=== PATIENT | female | born 1945 | race Caucasian/White ===

== ENCOUNTER 2016-10-08 10:07 | Emergency (ER) | payer MEDICARE, OTHER ==
--- NOTE | 2016-10-08 10:24 | Emergency Department Record ---
History of Present Illness - General Chief Complaint: Difficulty Breathing Stated Complaint: ARACELIS Time Seen by Provider: 10/08/16 10:13 Source: Patient Mode of Arrival: Ambulatory Limitations: No limitations - History of Present Illness Initial Comments: 71 yo female presents with increased shortness of breath over the last 1-2 months. She has had a mild cough. No fevers. She has has some right sided chest pains as well. The chest pain is under the right breast and is worse with inspiration. She is progressively getting more short of breath over time. She had a CXR performed on 09/28 that demonstrated a RUL hazy opacity. She saw her PCP on 10/04. A CT of the chest was scheduled for Sunday. She shortness of breath has progressed since then. No fever. No hemoptysisi. No history of cancer. She was started on antibiotics by her doctor. PCP is Jaci Barber. She is a non smoker. She is a diabetic and she has had pneumonia (2016) MD Complaint: Chest pain (with deep inspiration), Cough, Shortness of breath -: Week(s) (8) Severity: Severe Quality: Aching Consistency: Constant Improves With: Rest Worsens With: Exertion Context: Recent URI Associated Symptoms: Denies other symptoms - Related Data Allergies Allergy/AdvReac Type Severity Reaction Status Date / Time No Known Drug Allergies Allergy Verified 10/08/16 10:09 Review of Systems Constitutional: Denies: Chills, Fever, Malaise, Weakness Eyes: Denies: Eye discharge, Eye pain, Vision change ENT: Denies: Congestion, Epistaxis, Throat pain Respiratory: Reports: Cough, Dyspnea. Denies: Hemoptysis, Stridor, Wheezes Cardiovascular: Reports: Chest pain. Denies: Palpitations, Syncope Endocrine: Denies: Fatigue, Polydipsia, Polyuria Gastrointestinal: Denies: Abdominal pain, Diarrhea, Nausea, Vomiting Genitourinary: Denies: Dysuria, Urgency Musculoskeletal: Denies: Arthralgia, Back pain, Myalgia, Neck pain Skin: Denies: Bruising, Change in color Neurological: Denies: Headache, Numbness, Vertigo, Weakness Psychiatric: Reports: Anxiety Hematological/Lymphatic: Denies: Blood Clots, Easy bleeding, Easy bruising, Swollen glands Past Medical History - SOCIAL HISTORY Smoking Status: Former smoker - RESPIRATORY Hx Respiratory Disorders: Yes Hx Pneumonia: Yes - CARDIOVASCULAR Hx Cardio Disorders: Yes Hx Hypertension: Yes Comment:: hypercholesteremia - NEURO Hx Neuro Disorders: No - GI Hx GI Disorders: No - Hx Genitourinary Disorders: No - ENDOCRINE Hx Endocrine Disorders: Yes Hx Diabetes: Yes (NIDDM) Hx Thyroid Disease: Yes - MUSCULOSKELETAL Hx Musculoskeletal Disorders: No - PSYCH Hx Psych Problems: No - HEMATOLOGY/ONCOLOGY Hx Hematology/Oncology Disorders: No Physical Exam - General General Appearance: Alert, Oriented x3, Cooperative, Mild distress (due to shortness of breath), Anxious Limitations: No limitations - Head Head exam: Normal inspection - Eye Eye exam: Normal appearance, PERRL. negative: Conjunctival injection, Periorbital swelling, Scleral icterus - ENT ENT exam: Normal exam, Mucous membranes moist Ear exam: Normal external inspection Nasal Exam: Normal inspection Mouth exam: Normal external inspection Teeth exam: Normal inspection Throat exam: Normal inspection - Neck Neck exam: Normal inspection, Full ROM. negative: Tenderness - Respiratory Respiratory exam: Accessory muscle use, Chest wall tenderness (right upper), Decreased breath sounds. negative: Normal lung sounds bilaterally, Prolonged expiratory, Rhonchi, Wheezes - Cardiovascular Cardiovascular Exam: Regular rate, Normal rhythm, Normal heart sounds - GI/Abdominal GI/Abdominal exam: Soft. negative: Tenderness - Rectal Rectal exam: Deferred - exam: Deferred - Extremities Extremities exam: Normal inspection, Full ROM, Normal capillary refill. negative: Pedal edema, Tenderness - Back Back exam: Reports: Normal inspection, Full ROM. Denies: CVA tenderness (R), CVA tenderness (L), Muscle spasm, Rash noted, Tenderness - Neurological Neurological exam: Alert, Normal gait, Oriented X3. negative: Altered - Psychiatric Psychiatric exam: Normal affect, Normal mood. negative: Agitated, Anxious - Skin Skin exam: Dry, Intact, Normal color, Warm Course - Reevaluation(s) Reevaluation #1: The patient was seen on arrival Her initial room air oxygen saturation was 85% No fever. Right sided chest pain that has been present for several weeks. 10/08/16 10:25 Reevaluation #2: The CBC was reviewed. No acute changes. The portable chest XR was reviewed as well as the 09/28 CXR. Hazy opacity noted on today's portable much worse than the prior on 09/28. 10/08/16 10:40 BUN/CR/GFR reviewed and are in the normal range 10/08/16 10:45 Reevaluation #3: The Troponin and BNP are normal The CXR was read as congestion with possible infiltrate The patient has a concern about IV contrast. She has never had it but her son got hives. We discussed the risks and benefits. She agrees to get IV contrast. She will be given Solumedrol and Benadryl prior. 10/08/16 11:02 Reevaluation #4: CTA of the chest completed. Soft tissue mass in the right hilar area, 7 x 8 x 6 cm, right pleural effusion, interstitial junior disease, nodules in the liver and adrenals. Suspicious for malignancy. She was informed of the results. Given the findings and her hypoxia she will need to be transferred. She chooses [facility] was contacted (Brianna) 10/08/16 12:34 Reevaluation #5: The patient was accepted by Dr Choi for inpatient work up of the mass due to her hypoxia 10/08/16 12:57 The patient was assigned a bed at [facility]. 10/08/16 13:35 Procedures - EKG Initial Date: 10/08/16 Time: 10:18 EKG Detail: Rate 93, Int normal, Josephine leftward, ST?QRS Anterior Q, no depression , Medical Decision Making - Lab Data Result diagrams: 10/08/16 10:22 10/08/16 10:22 Disposition Disposition: Transfer Clinical Impression: Hypoxia, Mass of right lung Dyspnea Qualifiers: Dyspnea type: unspecified Qualified Code(s): R06.00 - Dyspnea, unspecified Disposition: Acute Care Hospital Transfer Transfer To: [facility] Reason For Transfer: new lung mass Accepting Physician: Jimbo Time Discussed w/Accepting Physician: 12:57 Condition: (2) Stable Forms: Patient Portal Access Time of Disposition: 12:58
[2016-10-08 10:30] LABS: BASO % 0.3 % (0-6); EOS % 2.7 % (0-6); GRAN % 72.9 % (47-80); HEMATOCRIT 45.8 % (35.0-47.0); HEMOGLOBIN 14.9 gm/dl (11.6-16.0); LYMPH % 16.7 % (16-45); MEAN CELL VOLUME 83.1 fl (81-97); MEAN CORPUSCULAR HGB CONC 32.5 g/dl (32-36); MEAN PLATELET VOLUME 9.7 fl (7.4-10.4); MONO % 7.4 % (0-9); PLATELET COUNT 248 K/uL (130-400); RED BLOOD COUNT 5.51 M/uL (3.80-5.40); RED CELL DISTRIBUTION WIDTH 13.1 % (11.5-14.5); WHITE BLOOD COUNT W/O DIFF 9.4 K/uL (4.2-12.2)
[2016-10-08] MEDS: IPRATROPIUM/ALBUTEROL (0.5MG/3MG) NEB INH ONE (10:33)
[2016-10-08 10:41] LABS: ALB/GLOB RATIO 1.2 (1.1-1.8); ALBUMIN 4.7 gm/dL (3.5-5.0); ALKALINE PHOSPHATASE 96 U/L (38-126); ALT/SGPT 30 U/L (9-52); ANION GAP 11.5 (7-16); AST/SGOT 34 U/L (14-36); BILIRUBIN,TOTAL 0.59 mg/dL (0.2-1.3); BLOOD UREA NITROGEN 12 mg/dL (7-17); CARBON DIOXIDE 27.5 mmol/L (22-30); CREATININE 0.7 mg/dL (0.52-1.04); EST GLOMERULAR FILTRATION RATE > 60 ml/min; GLUCOSE,RANDOM 141 mg/dL (70-110); TOTAL PROTEIN 8.6 gm/dL (6.3-8.2)
[2016-10-08 10:42] LABS: INR 0.97; PARTIAL THROMBOPLASTIN TIME 27.4 SECONDS (24.5-39.1)
[2016-10-08 11:00] LABS: TROPONIN I < 0.012 ng/mL (0.00-0.034)
[2016-10-08] MEDS: METHYLPREDNISOLONE PF 125MG/VIAL IVP ONE (11:10)
[2016-10-08] MEDS: DIPHENHYDRAMINE HCL IV 50 MG/ML VIAL IVP ONE (11:10)
[2016-10-08] MEDS: CEFTRIAXONE SODIUM 1 GM in 0.9 % SODIUM CHLORIDE 100ML 100 ML IVPB ONE (11:51)
[2016-10-08] MEDS: AZITHROMYCIN 500 MG TABLET PO ONE (11:51)
== END 2016-10-08 14:11 | disposition short-term general hospital (02) ==
LOC: ER 10:07
DX: R09.02 Hypoxemia (principal); R91.8 Other nonspecific abnormal finding of lung field; J84.9 Interstitial pulmonary disease, unspecified; R07.89 Other chest pain; E11.9 Type 2 diabetes mellitus without complications; K76.89 Other specified diseases of liver; E27.9 Disorder of adrenal gland, unspecified; I10 Essential (primary) hypertension; Z87.891 Personal history of nicotine dependence
CPT/HCPCS: 99285 ×2; 96365; 96375; 85025; 85730; 85610; 84484; 80053; 83880; 71010; 71275; 94640; 93005; 93010; Q9967; J1200; J2930